=== PATIENT | female | born 2000 | race African-American/Black ===

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

== ENCOUNTER → 2018-02-06 | Outpatient (CLI) | payer OTHER ==
[~2018-02-06] MED LIST changes: -IOHEXOL 240 MG/ML 50ML VIAL. ONE; -IOHEXOL 300 MG/ML 75 ML VIAL. IV ONE
--- NOTE | 2018-02-07 07:49 | RAD ---
OB <14 WKS W/TV History: Pelvic pain, right lower quadrant pain Comparison: None. Findings: Multiple transabdominal sonographic images of the pelvis are submitted. Uterus measured 11.7 x 5.5 x 6.9 cm. Ovaries are not well visualized. Transvaginal ultrasound: Multiple transvaginal sonographic images of the pelvis are submitted. There is a single intrauterine gestational sac. Gestational sac morphology is within normal limits. Amniotic fluid volume is within normal limits. There is visible yolk sac and pole. [place]-rump length measurement of 0.32 cm corresponds 6 weeks 0 days. Mean sac dimension of 1.44 cm corresponds with 6 weeks 2 days. Adjusted ultrasound age is 6 weeks 1 day with estimated delivery date of 10/01/2018. LMP age is 6 weeks 4 days with estimated delivery date of 09/28/2018. There is cardiac activity 99 bpm. Right ovary measured 3.5 x 1.8 x 2.1 cm, normal color flow. Left ovary measured 3.3 x 2.2 x 2.7 cm. There is left corpus luteal cyst up to 1.9 x 1.3 x 1.4 cm. There is minimal free fluid in the posterior cul-de-sac. Impression: 1. There is a single viable intrauterine . Adjusted ultrasound age is 6 weeks 1 day with estimated delivery date of 10/01/2018. 2. There is minimal nonspecific free fluid in the posterior cul-de-sac. There is left corpus luteal cyst. Electronically signed by: Luis Hunt MD (02/07/2018 7:46 AM) [id number]
== END | disposition home or self-care (01) ==
LOC: US 16:39
PROVIDERS: ATTEND Nurse Practitioner Family
DX: O34.81 Maternal care for other abnormalities of pelvic organs, first trimester (principal); N83.12 Corpus luteum cyst of left ovary; Z3A.08 8 weeks gestation of pregnancy
CPT/HCPCS: 76801; 76817